=== PATIENT | female | born 1950 | race Caucasian/White ===

== ENCOUNTER 2020-02-03 15:55 | Emergency (ER) | payer MEDICARE, MEDICAID ==
[~2020-02-03] VITALS: Ht 152.4 cm; Wt 58.0 kg
[2020-02-03 17:01] LABS: BILIRUBIN,URINE NEGATIVE (NEG); CLARITY,URINE CLEAR; COLOR,URINE YELLOW; NITRITE,URINE NEGATIVE (NEG); PH,URINE 5.5 (<5.0-8.0); PROTEIN,URINE NEGATIVE (NEG-TRACE); UROBILINOGEN,URINE 0.2 mg/dL (0.2 mg/dL)
[2020-02-03 17:14] LABS: BACTERIA,URINE 0 /HPF (0-FEW); WBC,URINE OCC /HPF (0-4)
[2020-02-03 17:54] LABS: BASO # 0.1 x10^3/uL (0.0-0.2); BASO % 1 % (0-3); EOS # 0.1 x10^3/uL (0.0-0.7); EOS % 1 % (0-3); HEMATOCRIT 39.3 % (36.0-47.0); HEMOGLOBIN 13.4 g/dL (12.0-15.5); LYMPH # 2.1 x10^3/uL (1.0-4.8); LYMPH % 14 % (24-48); MEAN CORPUSCULAR HEMOGLOBIN 32 pg (25-35); MEAN CORPUSCULAR HGB CONC 34 g/dL (31-37); MEAN CORPUSCULAR VOLUME 93 fL (79-100); MONO # 1.4 x10^3/uL (0.0-1.1); MONO % 9 % (0-9); NEUT # 11.3 x10^3/uL (1.8-7.7); NEUT % 75 % (31-73); PLATELET COUNT 324 x10^3/uL (140-400); RED BLOOD COUNT 4.24 x10^6/uL (3.50-5.40); WHITE BLOOD COUNT 15.1 x10^3/uL (4.0-11.0)
[2020-02-03] MEDS ORDERED: ORPHENADRINE CITRATE 60 MG/2 ML VIAL. IM ONE (18:00)
[2020-02-03] MEDS ORDERED: methylPREDNISolone SOD SUCC PF 125 MG/2 ML VIAL. IV ONE (18:00)
[2020-02-03 18:02] LABS: CALCIUM 9.1 mg/dL (8.5-10.1); CREATININE 0.9 mg/dL (0.6-1.0); GFR 62.5; POTASSIUM 3.9 mmol/L (3.5-5.1)
[2020-02-03 18:09] LABS: ALBUMIN 3.7 g/dL (3.4-5.0); ALBUMIN/GLOBULIN RATIO 1.3 (1.0-1.7); TOTAL BILIRUBIN 0.2 mg/dL (0.2-1.0); TOTAL PROTEIN 6.6 g/dL (6.4-8.2)
--- NOTE | 2020-02-03 18:11 | RAD ---
CT lumbar spine without contrast History: Back pain Axial helical images of the lumbar spine were obtained without contrast. Axial, coronal and sagittal reconstruction was performed. Findings: There is grade 1 anterolisthesis of L4 on L5. The remaining vertebral bodies are aligned. There is loss of intervertebral disc height at multiple levels and there is vacuum changes of the intervertebral discs at L3-S1. There is no loss of vertebral body stature. Evaluation of the central canal is limited without contrast. There is diffuse circumferential disc bulge and hypertrophy of facets and ligamentum flavum resulting in mild central stenosis at multiple levels and moderate central stenosis at L2-L3 and L3-L4. There is marked narrowing of multiple neuroforamen below the level of the exiting nerve roots. Impression: Degenerative changes of multilevel central and neuroforaminal stenosis. No acute findings. End impression PQRS Compliance Statement: One or more of the following individualized dose reduction techniques were utilized for this examination: 1. Automated exposure control 2. Adjustment of the mA and/or kV according to patient size 3. Use of iterative reconstruction technique Electronically signed by: Fausto Dorsey III, MD (02/03/2020 6:08 PM) [facility]
--- NOTE | 2020-02-03 18:22 | PHYS DOC ---
Past Medical History Past Medical History: COPD, Diabetes-Type II, GERD (CANELO GALDAMEZ [employer]) Past Surgical History: Cholecystectomy, Other Additional Past Surgical Histo: PTCA W/ 2 STENTS 2018 (CANELO GALDAMEZ [employer]) Smoking Status: Current Every Day Smoker Alcohol Use: None (CANELO GALDAMEZ APRN) General Adult EDM: Chief Complaint: LOWER BACK PAIN OR INJURY HPI: HPI: Patient is a 69 year old female who presents with left lower back throbbing pain that goes into the left hip and is worse with movement. She states it still is throbbing when she is sitting still. She states is been going on for the last week. She rates her pain 8 out of 10 she states it radiates nowhere else. She has history of GERD, COPD, diabetes, cholecystectomy, PTCA with 2 stents, smoker. (CANELO GALDAMEZ [employer]) Review of Systems: Review of Systems: Constitutional: Denies fever or chills. [] Eyes: Denies change in visual acuity. [] HENT: Denies nasal congestion or sore throat. [] Respiratory: Denies cough or shortness of breath. [] Cardiovascular: Denies chest pain or edema. [] GI: Denies abdominal pain, nausea, vomiting, bloody stools or diarrhea. [] : Denies dysuria. [] Musculoskeletal: +Left lower back pain or + Left hip joint pain. [] Integument: Denies rash. [] Neurologic: Denies headache, focal weakness or sensory changes. [] Endocrine: Denies polyuria or polydipsia. [] Lymphatic: Denies swollen glands. [] Psychiatric: Denies depression or anxiety. [] (CANELO GALDAMEZ [employer]) Heart Score: Risk Factors: Risk Factors: DM, Current or recent (<one month) smoker, HTN, HLP, family history of CAD, obesity. Risk Scores: Score 0 - 3: 2.5% MACE over next 6 weeks - Discharge Home Score 4 - 6: 20.3% MACE over next 6 weeks - Admit for Clinical Observation Score 7 - 10: 72.7% MACE over next 6 weeks - Early Invasive Strategies (CANELO GALDAMEZ [employer]) Current Medications: Current Medications Medications (Trade) Dose Ordered Sig/Brent Start Time Stop Time Status Last Admin Dose Admin Methylprednisolone Sodium Succinate (SOLU-Medrol 125MG VIAL) 60 mg 1X ONCE 02/03/20 18:00 02/03/20 18:01 DC 02/03/20 18:13 60 MG Orphenadrine Citrate (Norflex) 60 mg 1X ONCE 02/03/20 18:00 02/03/20 18:01 DC 02/03/20 18:13 60 MG (CANELO GALDAMEZ APRN) Allergies: Allergies: Allergies Coded Allergies Type Severity Reaction Last Updated Verified No Known Drug Allergies 02/03/20 No (CANELO GALDAMEZ APRN) Physical Exam: PE: Constitutional: Well developed, well nourished, no acute distress, non-toxic appearance. [] HENT: Normocephalic, atraumatic, bilateral external ears normal, oropharynx moist, no oral exudates, nose normal. [] Eyes: PERRLA, EOMI, conjunctiva normal, no discharge. [] Neck: Normal range of motion, no tenderness, supple, no stridor. [] Cardiovascular:Heart rate regular rhythm, no murmur [] Lungs & Thorax: Bilateral breath sounds clear to auscultation [] Abdomen: Bowel sounds normal, soft, no tenderness, no masses, no pulsatile masses. [] Skin: Warm, dry, no erythema, no rash. [] Back: Left Lumbar tenderness, no CVA tenderness. [] Extremities: No tenderness, no cyanosis, no clubbing, ROM intact, no edema. [] Neurologic: Alert and oriented X 3, normal motor function, normal sensory function, no focal deficits noted. [] Psychologic: Affect normal, judgement normal, mood normal. [] (CANELO GALDAMEZ APRN) Current Patient Data: Labs: Laboratory Tests Test 02/03/20 16:30 02/03/20 17:40 Urine Collection Type Unknown Urine Color Yellow Urine Clarity Clear Urine pH 5.5 (<5.0-8.0) Urine Specific [place] 1.020 (1.000-1.030) Urine Protein Negative mg/dL (NEG-TRACE) Urine Glucose (UA) Negative mg/dL (NEG) Urine Ketones (Stick) Negative mg/dL (NEG) Urine Blood Negative (NEG) Urine Nitrite Negative (NEG) Urine Bilirubin Negative (NEG) Urine Urobilinogen Dipstick 0.2 mg/dL (0.2 mg/dL) Urine Leukocyte Esterase Negative (NEG) Urine RBC 1-2 /HPF (0-2) Urine WBC Occ /HPF (0-4) Urine Squamous Epithelial Cells Mod /LPF Urine Bacteria 0 /HPF (0-FEW) Urine Mucus Mod /LPF White Blood Count 15.1 x10^3/uL (4.0-11.0) H Red Blood Count 4.24 x10^6/uL (3.50-5.40) Hemoglobin 13.4 g/dL (12.0-15.5) Hematocrit 39.3 % (36.0-47.0) Mean Corpuscular Volume 93 fL (79-100) Mean Corpuscular Hemoglobin 32 pg (25-35) Mean Corpuscular Hemoglobin Concent 34 g/dL (31-37) Red Cell Distribution Width 14.0 % (11.5-14.5) Platelet Count 324 x10^3/uL (140-400) Neutrophils (%) (Auto) 75 % (31-73) H Lymphocytes (%) (Auto) 14 % (24-48) L Monocytes (%) (Auto) 9 % (0-9) Eosinophils (%) (Auto) 1 % (0-3) Basophils (%) (Auto) 1 % (0-3) Neutrophils # (Auto) 11.3 x10^3/uL (1.8-7.7) H Lymphocytes # (Auto) 2.1 x10^3/uL (1.0-4.8) Monocytes # (Auto) 1.4 x10^3/uL (0.0-1.1) H Eosinophils # (Auto) 0.1 x10^3/uL (0.0-0.7) Basophils # (Auto) 0.1 x10^3/uL (0.0-0.2) Sodium Level 134 mmol/L (136-145) L Potassium Level 3.9 mmol/L (3.5-5.1) Chloride Level 96 mmol/L (98-107) L Carbon Dioxide Level 32 mmol/L (21-32) Anion Gap 6 (6-14) Blood Urea Nitrogen 20 mg/dL (7-20) Creatinine 0.9 mg/dL (0.6-1.0) Estimated GFR (Cockcroft-Gault) 62.5 BUN/Creatinine Ratio 22 (6-20) H Glucose Level 97 mg/dL (70-99) Calcium Level 9.1 mg/dL (8.5-10.1) Total Bilirubin 0.2 mg/dL (0.2-1.0) Aspartate Amino Transferase (AST) 15 U/L (15-37) Alanine Aminotransferase (ALT) 21 U/L (14-59) Alkaline Phosphatase 99 U/L (46-116) Total Protein 6.6 g/dL (6.4-8.2) Albumin 3.7 g/dL (3.4-5.0) Albumin/Globulin Ratio 1.3 (1.0-1.7) Lipase 229 U/L (73-393) Laboratory Tests 02/03/20 17:40 Laboratory Tests 02/03/20 17:40 Vital Signs: Vital Signs Date Time Temp Pulse Resp B/P (MAP) Pulse Ox O2 Delivery O2 Flow Rate FiO2 02/03/20 16:30 99.2 92 18 120/66 (84) 98 Room Air 99.2 (CANELO GALDAMEZ APRN) EKG: EKG: [] (CANELO GALDAMEZ APRN) Radiology/Procedures: Radiology/Procedures: [] Impression: [facility] [address] [place] [address] IMAGING REPORT Signed PATIENT: KARMEN BELTRÁNACCOUNT: [id number] : 1950 LOCATION: ER AGE: 69 SEX: F EXAM STATUS: REG ER ORD. PHYSICIAN: CANELO GALDAMEZ APRN REASON: LOW BACK PAIN WITH MOVEMENT, NO INJURY PROCEDURE: CT LUMBAR SPINE WO CONTRAST CT lumbar spine without contrast History: Back pain Axial helical images of the lumbar spine were obtained without contrast. Axial, coronal and sagittal reconstruction was performed. Findings: There is grade 1 anterolisthesis of L4 on L5. The remaining vertebral bodies are aligned. There is loss of intervertebral disc height at multiple levels and there is vacuum changes of the intervertebral discs at L3-S1. There is no loss of vertebral body stature. Evaluation of the central canal is limited without contrast. There is diffuse circumferential disc bulge and hypertrophy of facets and ligamentum flavum resulting in mild central stenosis at multiple levels and moderate central stenosis at L2-L3 and L3-L4. There is marked narrowing of multiple neuroforamen below the level of the exiting nerve roots. Impression: Degenerative changes of multilevel central and neuroforaminal stenosis. No acute findings. End impression PQRS Compliance Statement: One or more of the following individualized dose reduction techniques were utilized for this examination: 1. Automated exposure control 2. Adjustment of the mA and/or kV according to patient size 3. Use of iterative reconstruction technique Electronically signed by: Komal Valera III, MD (02/03/2020 6:08 PM) [facility] DICTATED and SIGNED BY: KOMAL VALERA III, MD DATE: 02/03/[id number] [address] [place] [address] IMAGING REPORT Signed PATIENT: KARMEN BELTRÁNACCOUNT: [id number] : 1950 LOCATION: ER AGE: 69 SEX: F EXAM STATUS: REG ER ORD. PHYSICIAN: CANELO GALDAMEZ APRN REASON: urinary frequency, low grade fever, left back pain PROCEDURE: ACUTE ABDOMEN SERIES ACUTE ABDOMEN SERIES History: Reason: urinary frequency, low grade fever, left back pain / Spl. Instructions: / History: Technique: Supine and upright views the abdomen. Comparison: None. Findings: No consolidation or pleural effusion. Normal heart size. No pneumothorax. No pneumoperitoneum. Minimal small bowel gas. Air and stool scattered throughout the imaged colon. Moderate colonic stool burden. Surgical clips right upper quadrant. Multilevel lumbar spondylosis. Impression: 1. Nonobstructed bowel gas pattern. 2. Moderate colonic stool burden. 3. Multilevel lumbar spondylosis. Electronically signed by: Herbie Gant DO (02/03/2020 7:42 PM) [facility] DICTATED and SIGNED BY: HERBIE GANT DO DATE: 02/03/[id number] [address] [id number] IMAGING REPORT Signed PATIENT: KARMEN BELTRÁNACCOUNT: [id number] : 1950 LOCATION: ER AGE: 69 SEX: F EXAM STATUS: REG ER ORD. PHYSICIAN: CANELO GALDAMEZ APRN REASON: pain with movement PROCEDURE: HIP LEFT 2V WITH PELVIS HIP LEFT 2V WITH PELVIS History: Reason: pain with movement / Spl. Instructions: / History: Technique: AP view the pelvis and 2 additional views of the left hip. Comparison: None. Findings: Normal alignment of the hips. No fracture. Lower lumbar spondylosis. Impression: 1. No acute osseous abnormality. 2. Lower lumbar spondylosis. Electronically signed by: Herbie Gant DO (02/03/2020 7:44 PM) [facility] DICTATED and SIGNED BY: HERBIE GANT DO DATE: 02/03/[id number] 0 (CANELO GALDAMEZ APRN) Course & Med Decision Making: Course & Med Decision Making Pertinent Labs and Imaging studies reviewed. (See chart for details) See HPI. Tenderness to left lower back. Abdomen is otherwise soft and nontender. Skin pink warm and dry. Vital signs within normal limits. Temp is slightly elevated nine 9.2. Her white count is slightly elevated at 15. Alert and oriented x4. Ambulatory but limping to the left side. Speaks in full complete sentences. Skin pink warm and dry. No unilateral swelling. No calf tenderness. Urinalysis shows no infection. CT lumbar spine shows osteoarthritis. X-rays and CTs show no acute findings. Blood work is generally unremarkable. Patient can follow-up with orthopedics or primary care physician. Patient is given Solu-Medrol, orphenadrine the ED. We will send patient home on a Medrol Dosepak and lidocaine patches. [] (CANELO GALDAMEZ APRN) Dragon Disclaimer: Dragon Disclaimer: This electronic medical record was generated, in whole or in part, using a voice recognition dictation system. (CANELO GALDAMEZ APRN) Departure Departure Impression: Primary Impression: Low back pain Qualified Codes: M54.42 - Lumbago with sciatica, left side Disposition: 01 DC HOME SELF CARE/HOMELESS Condition: STABLE Referrals: GETACHEW BRADY MD (PCP) Patient Instructions: Low Back Strain with [facility], Sciatica with [facility] Additional Instructions: Follow-up with your primary care provider. Take medication as prescribed and with food. Rest as much as possible. Scripts Lidocaine (Lidocaine) 1 Each Adh..patch 1 EACH TP DAILY, #7 PATCH WEAR FOR 12 HOURS AND THEN TAKE OFF FOR 12 HOURS Prov: CANELO GALDAMEZ APRN 02/03/20 Methylprednisolone (MEDROL) 4 Mg Tab.ds.pk 1 PKG PO UD, #1 PKG Prov: CANELO GALDMAEZ APRN 02/03/20 Attending Signature Attending Signature I have reviewed the PA/GLAZIER [employer]ASS's note and plan of care. I was available for consultation as needed during the patient's visit in the emergency department. I agree with the clinical impression, plan, and disposition. (MARLI ARIZMENDI DO) CANELO GALDAMEZ APRN Feb 03, 2020 18:22 MARLI ARIZMENDI DO Feb 03, 2020 23:07
--- NOTE | 2020-02-03 19:44 | RAD ---
ACUTE ABDOMEN SERIES History: Reason: urinary frequency, low grade fever, left back pain / Spl. Instructions: / History: Technique: Supine and upright views the abdomen. Comparison: None. Findings: No consolidation or pleural effusion. Normal heart size. No pneumothorax. No pneumoperitoneum. Minimal small bowel gas. Air and stool scattered throughout the imaged colon. Moderate colonic stool burden. Surgical clips right upper quadrant. Multilevel lumbar spondylosis. Impression: 1. Nonobstructed bowel gas pattern. 2. Moderate colonic stool burden. 3. Multilevel lumbar spondylosis. Electronically signed by: Herbie Gant DO (02/03/2020 7:42 PM) [facility]
--- NOTE | 2020-02-03 19:47 | RAD ---
HIP LEFT 2V WITH PELVIS History: Reason: pain with movement / Spl. Instructions: / History: Technique: AP view the pelvis and 2 additional views of the left hip. Comparison: None. Findings: Normal alignment of the hips. No fracture. Lower lumbar spondylosis. Impression: 1. No acute osseous abnormality. 2. Lower lumbar spondylosis. Electronically signed by: Herbie Gant DO (02/03/2020 7:44 PM) [facility]
[2020-02-03] MEDS ORDERED: METH4TAB2 PO (20:14)
[2020-02-03] MEDS ORDERED: LIDO1ADH79 TP (20:14)
[2020-02-03 20:16] VITALS: BP 119/66
== END 2020-02-03 20:28 | disposition home or self-care (01) ==
LOC: ER 15:55
DX: M54.42 Lumbago with sciatica, left side (principal); M25.552 Pain in left hip; J44.9 Chronic obstructive pulmonary disease, unspecified; E11.9 Type 2 diabetes mellitus without complications; K21.9 Gastro-esophageal reflux disease without esophagitis; F17.200 Nicotine dependence, unspecified, uncomplicated; Z90.49 Acquired absence of other specified parts of digestive tract; Z98.890 Other specified postprocedural states
CPT/HCPCS: 36415; 72131; 73502; 74022; 80053; 81001; 83690; 85025; 96372; 96374; 99285; J2360; J2930